=== PATIENT | female | born 1985 | race Two or more races ===

== ENCOUNTER 2017-08-25 15:33 | Emergency (ER) | payer MEDICAID ==
[~2017-08-25] VITALS: Ht 154.9 cm; Wt 68.0 kg
[2017-08-25 15:45] VITALS: BP 115/72
== END 2017-08-25 21:27 | disposition left against medical advice (07) ==
LOC: ER 15:33
DX: R10.9 Unspecified abdominal pain (principal); Z53.29 Procedure and treatment not carried out because of patient's decision for other reasons

== ENCOUNTER 2017-09-15 18:47 | Emergency (ER) | payer MEDICAID ==
[~2017-09-15] VITALS: Ht 154.9 cm; Wt 68.0 kg
[2017-09-15 18:53] VITALS: BP 139/87
[2017-09-15 19:13] LABS: Urine Bilirubin Negative (Negative); Urine Blood TRACE /uL (Negative); Urine Color PINK (Yellow); Urine Glucose Normal (Normal); Urine Ketone TRACE (Negative); Urine Mucus FEW (None Seen); Urine Nitrite POSITIVE (Negative); Urine RBC 2 /hpf (0 - 4); Urine Squamous Epithelial Cell FEW /hpf (<5); Urine Urobilinogen Normal (Negative); Urine pH 5.5 (5.0-8.0)
[2017-09-15] MEDS ORDERED: IBUPROFEN 600 MG TAB PO ONE (19:30)
[2017-09-15] MEDS ORDERED: cefTRIAXone SOD 1,000 MG VL IM ONE (19:30)
== END 2017-09-15 19:56 | disposition home or self-care (01) ==
LOC: ER 18:47
DX: N39.0 Urinary tract infection, site not specified (principal)
CPT/HCPCS: 81001; 81025; 96372; 99284; J0696

== ENCOUNTER 2017-09-25 23:26 | Emergency (ER) | payer MEDICAID ==
[~2017-09-25] VITALS: Ht 157.5 cm; Wt 68.0 kg
[2017-09-26 00:23] LABS: Basophils # (auto) 0 uL; Basophils % (auto) 0.6 % (0.0-2.0); Eosinophils # (auto) 0.1 uL; Eosinophils % (auto) 1.7 % (0.0-7.0); Hematocrit 38.5 % (36.0-46.0); Hemoglobin 13.2 g/dL (12.2-16.2); Lymphocytes # (auto) 2.1 uL; Lymphocytes % (auto) 29.5 % (10.0-50.0); Mean Corpuscular Hemoglobin 33.8 pg (28.0-32.0); Mean Corpuscular Hgb Conc. 34.4 g/dL (32.0-36.0); Mean Corpuscular Volume 98.4 fL (80.0-100.0); Mean Platelet Volume 8.4 fL (6.9-10.8); Monocytes # (auto) 0.5 uL; Monocytes % (auto) 6.8 % (0.0-12.0); Neutrophils # (auto) 4.4 uL; Neutrophils % (auto) 61.4 % (37.0-80.0); Platelet Count (auto) 196 10^3/uL (140-450); Red Cell Distribution Width 12.7 % (11.8-14.3); White Blood Cell 7.2 10^3/uL (4.4-10.8)
[2017-09-26 00:28] LABS: Urine Bilirubin Negative (Negative); Urine Blood Negative /uL (Negative); Urine Color Yellow (Yellow); Urine Glucose Normal (Normal); Urine Ketone Negative (Negative); Urine Mucus FEW (None Seen); Urine Nitrite Negative (Negative); Urine RBC <1 /hpf (0 - 4); Urine Squamous Epithelial Cell FEW /hpf (<5); Urine Urobilinogen Normal (Negative); Urine pH 5.5 (5.0-8.0)
[2017-09-26 00:42] LABS: Albumin 3.6 g/dL (3.4-5.0); BUN/Creatinine Ratio 13.7; Calcium 9.2 mg/dL (8.5-10.1); Magnesium 2.2 mg/dL (1.6-2.6); Potassium 4.2 mmol/L (3.5-5.1)
[2017-09-26 00:44] LABS: Bilirubin, Total 0.3 mg/dL (0.2-1.0); Total Protein 7.6 g/dL (6.4-8.2)
[2017-09-26] MEDS ORDERED: MAGNESIUM CITRATE SOLUTION 300 ML BTL PO ONE (05:30)
[2017-09-26] MEDS ORDERED: LACTULOSE 20Gm/30ML SOLN PO ONE (05:30)
[2017-09-26 06:02] VITALS: BP 117/62
== END 2017-09-26 06:04 | disposition home or self-care (01) ==
LOC: ER 23:29
DX: R10.13 Epigastric pain (principal); K59.00 Constipation, unspecified
CPT/HCPCS: 36415; 74176; 80053; 81001; 83690; 83735; 84702; 85025

== ENCOUNTER 2020-11-12 21:50 | Emergency (ER) | payer MEDICAID ==
[~2020-11-12] VITALS: Ht 154.9 cm; Wt 78.0 kg
[2020-11-12 21:58] VITALS: BP 152/80
[2020-11-12] MEDS ORDERED: TETANUS-DIPTH-ACEL PERTUSSIS 0.5ML SYR Tdap IM ONE (22:45)
== END 2020-11-13 00:25 | disposition home or self-care (01) ==
LOC: ER 21:51
DX: S01.511A Laceration without foreign body of lip, initial encounter (principal); J45.909 Unspecified asthma, uncomplicated; Y04.0XXA Assault by unarmed brawl or fight, initial encounter; Y93.89 Activity, other specified; Y92.89 Other specified places as the place of occurrence of the external cause; Y99.8 Other external cause status
CPT/HCPCS: 12013; 70486; 90471; 90715

== ENCOUNTER 2020-11-19 12:13 | Emergency (ER) | payer MEDICAID ==
[~2020-11-19] VITALS: Ht 154.9 cm; Wt 77.1 kg
[2020-11-19 20:36] VITALS: BP 138/88
== END 2020-11-19 21:31 | disposition home or self-care (01) ==
LOC: ER 12:13
DX: S01.511D Laceration without foreign body of lip, subsequent encounter (principal); X58.XXXD Exposure to other specified factors, subsequent encounter